=== PATIENT | male | born 1955 | race Caucasian/White ===

== ENCOUNTER 2020-09-30 16:52 | Emergency (ER) | payer MEDICARE, OTHER ==
[~2020-09-30] VITALS: Ht 188 cm; Wt 117.9 kg
[~2020-09-30 16:52] MED LIST: PROAIR HFA8.5 GM INH; TYLENOL325 MG; ZPAK PO
[2020-09-30] MEDS ORDERED: SIMVASTATIN80 MG PO (17:05)
[2020-09-30] MEDS ORDERED: ZOLOFT50 M1 PO (17:05)
[2020-09-30] MEDS ORDERED: DOXYCYCLINE 10100 MG PO (18:28)
[2020-09-30 18:33] VITALS: BP 175/98
== END 2020-09-30 18:34 | disposition home or self-care (01) ==
LOC: M.ERS 16:52
DX: L03.115 Cellulitis of right lower limb (principal); E78.5 Hyperlipidemia, unspecified; Z79.899 Other long term (current) drug therapy

== ENCOUNTER → 2020-12-26 | Outpatient (CLI) | payer MEDICARE, OTHER ==
[~2020-12-26] MED LIST changes: +DOXYCYCLINE 10100 MG PO; +SIMVASTATIN80 MG PO; +ZOLOFT50 M1 PO
== END ==
LOC: M.ULTRA 13:40
PROVIDERS: ATTEND Internal Medicine
DX: M79.661 Pain in right lower leg (principal); M79.89 Other specified soft tissue disorders